=== PATIENT | male | born 1980 | race Caucasian/White ===

== ENCOUNTER 2017-08-23 09:36 | Day surgery (SDC) | payer BC ==
[~2017-08-23 09:36] MED LIST: Buffered Lidocaine 0.9% SYRIN* 5 ML/SYR SYRINGE INTRADERM ONE; Famotidine IV* 10 MG/ML 2 ML (20 mg) IV ONE; Metoclopramide TAB* 10 MG PO ONE; ceFAZolin 2 GM PREMIX (*) 2 GM/50 ML BAG IVPB ONE
[2017-08-23] MEDS ORDERED: Metoclopramide TAB* 10 MG ONE (09:46)
[2017-08-23] MEDS ORDERED: Buffered Lidocaine 0.9% SYRIN* 5 ML/SYR SYRINGE ONE (09:46)
[2017-08-23] MEDS ORDERED: Famotidine IV* 10 MG/ML 2 ML (20 mg) ONE (09:46)
[2017-08-23] MEDS ORDERED: Ondansetron INJ* 2 MG/ML VIAL ONE (09:48)
[2017-08-23] MEDS ORDERED: fentaNYL* 50 MCG/ML 2 ML VIAL (100 MCG VIAL) ONE ×2 (09:48→11:56)
[2017-08-23] MEDS ORDERED: KETAMINE HCL* 50 MG/ML 10 ML VIAL ONE (09:48)
[2017-08-23] MEDS ORDERED: Ketorolac INJ* 30 MG/ML 1 ML VIAL ONE (09:48)
[2017-08-23] MEDS ORDERED: Lidocaine 2% PF * 5 ML VIAL ONE (09:48)
[2017-08-23] MEDS ORDERED: Midazolam* 1 MG/ML 10 ML VIAL (10 MG) ONE (09:48)
[2017-08-23] MEDS ORDERED: Propofol* 10 MG/ML 20 ML BTL IV PUSH ONE (09:48)
[2017-08-23] MEDS ORDERED: Dexamethasone IV* 4 MG/ML 1 ML (4 MG) ONE (09:48)
[2017-08-23] MEDS ORDERED: Lidocaine 1% INJ* 10 MG/ML 30 ML SDV ONE (10:59)
[2017-08-23] MEDS ORDERED: Bupivacaine 0.25% SDV* 30 ML ONE (10:59)
[2017-08-23] MEDS ORDERED: ceFAZolin 1 GM in Dextrose (*) 1 GM/50 ML BAG IVPB ONE (11:05)
[2017-08-23] MEDS ORDERED: fentaNYL* 50 MCG/ML 2 ML VIAL (100 MCG VIAL) IV PRN (12:02)
[2017-08-23] MEDS ORDERED: Naloxone* 0.4 MG/ML 1 ML VIAL IV PRN (12:02)
[2017-08-23] MEDS ORDERED: oxyCODONE/Acetamin 5/325 MG* TAB PO PRN ×2 (12:02→12:36)
[2017-08-23] MEDS ORDERED: Ondansetron INJ* 2 MG/ML VIAL IV PRN (12:02)
[2017-08-23] MEDS ORDERED: Acetaminophen IV 1GM/100ML * 100 ML ONE (13:20)
[2017-08-23 13:32] VITALS: BP 124/91
--- NOTE | 2017-08-24 16:20 | OP ---
DATE OF OPERATION: 08/23/17 [facility] DATE OF : 84 SURGEON: Gabe Fagan MD SCALE EXPERT: KATHIA Paz ANESTHESIOLOGIST: Fermín Castillo MD ANESTHESIA: General. Local was also used. PRE-OP DIAGNOSIS: Epigastric ventral hernia. POST-OP DIAGNOSIS: Epigastric ventral hernia. OPERATIVE PROCEDURE: Open repair with mesh of an epigastric ventral hernia. SPECIMENS: Hernia sac. DRAINS: None. WOUND CLASSIFICATION: 1. COMPLICATIONS: None. DESCRIPTION OF PROCEDURE: Written informed consent was obtained, the abdomen was marked with indelible ink and preoperative antibiotics were administered. The patient was taken to the operating room and placed in a supine position. Sequential compression devices and a warming blanket were applied. General anesthesia was administered and the abdomen was prepped and draped in the usual sterile fashion. Time-out verification was completed. The palpable hernia defect was about 3 cm above the umbilicus at the midline and marking was infiltrated in this area and a vertical incision was made and carried down to a rather large hernia sac extruding up into the subcutaneous space. We dissected this down to the fascial defect which was really nearly about 2 cm in size, but this appeared to be a true peritoneal sac extending up into the subcutaneous tissue and I was not able to reduce this due to the size of the neck of the hernia. I then opened up the sac and thus I entered the peritoneal cavity. There was omentum within the sac and we were able to reduce this, but due to the edema and thickening of the peritoneum, I was forced to excise this portion of the hernia sac down to the neck of the fascia to achieve an adequate fascial repair. Once this was complete, there was a small rent in the peritoneum, but we were able to identify the posterior abdominal wall into the peritoneal space and this was cleared of any preperitoneal fat and a 6.[address] hernia patch was then placed and sutured into position in 4 points around the periphery with horizontal mattress 0 Polysorb suture in usual fashion. Hemostasis was assured. The [place] fascia was then closed with 0 Vicryl sutures that were interrupted in a transverse orientation. Hemostasis was assured. The subcutaneous tissue was closed in layers of 3-0 and 4-0 Vicryl suture. Steri- Strips and sterile dressing was applied. The patient tolerated the procedure well, was taken to the recovery room in stable condition. [id number]/[facility] #: [id number] PHILIP
== END 2017-08-23 14:15 | disposition home or self-care (01) ==
LOC: OR 09:36
PROVIDERS: ATTEND Surgery
DX: K43.9 Ventral hernia without obstruction or gangrene (principal); Z68.36 Body mass index [BMI] 36.0-36.9, adult
CPT/HCPCS: 88302; A9270-GY; C1781; J0690; J1100; J1885; J2250; J2405; J2704; J3010